=== PATIENT | female | born 1995 | race Two or more races ===

== ENCOUNTER 2018-05-26 20:53 | Emergency (ER) | payer MEDICAID ==
[~2018-05-26] VITALS: Ht 160 cm; Wt 122.5 kg
[2018-05-27] MEDS ORDERED: KETOROLAC TROMETH 60MG/2ML VIAL IM ONE (00:45)
[2018-05-27] MEDS ORDERED: cefTRIAXone SOD 1,000 MG VL IM ONE (00:45)
== END 2018-05-27 01:28 | disposition home or self-care (01) ==
LOC: ER 20:57
DX: H66.92 Otitis media, unspecified, left ear (principal)
CPT/HCPCS: 96372; 99283; J0696; J1885